=== PATIENT | female | born 1940 | race African-American/Black ===

== ENCOUNTER 2020-11-18 10:48 | Inpatient (IN) | payer MEDICARE, MEDICAID ==
[~2020-11-18] VITALS: Ht 170.2 cm; Wt 73.6 kg
[2020-11-18 12:19] LABS: BASOPHILS % 0.6 % (0.0-2.0); EOSINOPHILS % 0.1 % (0.0-5.0); HEMATOCRIT. 34.4 % (36.0-48.0); HEMOGLOBIN. 11.5 g/dL (12.0-16.0); LYMPHOCYTES % 17.4 % (20.0-50.0); MEAN CORPUSCULAR HEMOGLOBIN 28.5 pg (28.0-32.0); MEAN CORPUSCULAR VOLUME 85.3 fL (81.0-99.0); MEAN PLATELET VOLUME 7.9 fl (7.4-10.4); MONOCYTES % 4.6 % (2.0-8.0); NEUTROPHILS % 77.3 % (40.0-76.0); PLATELET 225 x1000/uL (130-400); RED BLOOD CELL COUNT 4.03 mill/uL (4.2-5.4); RED CELL DISTRIBUTION WIDTH 14.9 % (11.6-14.6)
[2020-11-18 12:23] LABS: CHLORIDE 111 mEq/L (98-107)
[2020-11-18 12:26] LABS: INR 1.1; PROTHROMBIN TIME 11.3 sec (9.6-11.0)
[2020-11-18] MEDS ORDERED: IPRATROPIUM/ALBUTEROL 0.5-3(2.5)MG/3ML NEB HHN PRN (13:15)
[2020-11-18] MEDS ORDERED: ACETAMINOPHEN 325MG TABLET PO PRN (13:15)
[2020-11-18] MEDS ORDERED: ONDANSETRON HCL 4MG/2ML INJ IV PRN (13:15)
[2020-11-18] MEDS ORDERED: DIPHENHYDRAMINE 50MG/ML VIAL IV PRN (13:15)
[2020-11-18] MEDS: SODIUM CHLORIDE 0.9% 1,000 ML IV SCH (13:45)
[2020-11-18 21:15] LABS: TOTAL IRON BINDING CAPACITY 351 ug/dL (250-450)
[2020-11-18 21:30] LABS: FERRITIN 35 ng/mL (10-291)
[2020-11-18 21:33] LABS: FOLIC ACID (FOLATE) SERUM > 20.00 ng/mL (>5.38)
[2020-11-18 21:44] LABS: VITAMIN B12 SERUM 460 pg/mL (211-911)
[2020-11-18 23:15] VITALS: BP 130/81
[2020-11-18] MEDS ORDERED: IOHEXOL-300 100 ML BOTTLE ONE (23:22)
[2020-11-18] MEDS ORDERED: DEXTROSE 50% WATER 50ML SYRINGE IV PRN (23:30)
[2020-11-19] VITALS: BP 130/81
[2020-11-19] MEDS: PANTOPRAZOLE SODIUM 40 MG/VIAL IV SCH ×2 (02:22→21:00)
[2020-11-19] MEDS: SODIUM CHLORIDE 0.9% 1,000 ML IV SCH ×2 (02:26→17:35)
[2020-11-19 04:00] VITALS: BP 103/57
[2020-11-19] MEDS: BLOOD SUGAR DIAGNOSTIC STRIP TEST SCH ×4 (05:36→21:00)
[2020-11-19] MEDS: INSULIN LISPRO 100 UNITS/ML SUBCUT SCH ×4 (05:36→21:00)
[2020-11-19 06:40] LABS: BASOPHILS % 0.9 % (0.0-2.0); EOSINOPHILS % 2.3 % (0.0-5.0); HEMATOCRIT. 31.2 % (36.0-48.0); HEMOGLOBIN. 10.1 g/dL (12.0-16.0); LYMPHOCYTES % 30.8 % (20.0-50.0); MEAN CORPUSCULAR HEMOGLOBIN 28.2 pg (28.0-32.0); MEAN CORPUSCULAR VOLUME 86.9 fL (81.0-99.0); MEAN PLATELET VOLUME 8.1 fl (7.4-10.4); MONOCYTES % 8.1 % (2.0-8.0); NEUTROPHILS % 57.9 % (40.0-76.0); PLATELET 195 x1000/uL (130-400); RED BLOOD CELL COUNT 3.59 mill/uL (4.2-5.4)
[2020-11-19 07:00] LABS: CHLORIDE 111 mEq/L (98-107)
[2020-11-19 07:10] LABS: LDL CHOLESTEROL 121 mg/dL (5-100)
[2020-11-19 07:12] LABS: HDL CHOLESTEROL 35 mg/dL (40-59)
[2020-11-19 08:00] VITALS: BP 104/56
[2020-11-19 12:00] VITALS: BP 133/73
[2020-11-19] MEDS ORDERED: BISACODYL 5MG TABLET PO NR ×2 (19:00→23:00)
[2020-11-19] MEDS ORDERED: METOCLOPRAMIDE HCL 10MG/2ML VIAL IV NR ×2 (19:00→23:00)
[2020-11-19] MEDS ORDERED: SORBITOL 70% SOLN 30ML PO NR ×2 (19:30→23:30)
[2020-11-19 20:00] VITALS: BP 135/58
[2020-11-20] VITALS: BP 110/53
[2020-11-20 04:00] VITALS: BP 135/71
[2020-11-20] MEDS: SODIUM CHLORIDE 0.9% 1,000 ML IV SCH ×2 (05:15→18:03)
[2020-11-20 06:49] LABS: BASOPHILS % 0.7 % (0.0-2.0); HEMATOCRIT. 28.7 % (36.0-48.0); HEMOGLOBIN. 9.7 g/dL (12.0-16.0); LYMPHOCYTES % 32.3 % (20.0-50.0); MEAN CORPUSCULAR HEMOGLOBIN 29.3 pg (28.0-32.0); MEAN CORPUSCULAR VOLUME 87.1 fL (81.0-99.0); MEAN PLATELET VOLUME 7.9 fl (7.4-10.4); MONOCYTES % 8.1 % (2.0-8.0); NEUTROPHILS % 55.9 % (40.0-76.0); PLATELET 209 x1000/uL (130-400); RED CELL DISTRIBUTION WIDTH 14.9 % (11.6-14.6)
[2020-11-20 06:51] LABS: INR 1.1; PROTHROMBIN TIME 11.3 sec (9.6-11.0)
[2020-11-20] MEDS: BLOOD SUGAR DIAGNOSTIC STRIP TEST SCH ×4 (07:00→20:26)
[2020-11-20] MEDS: INSULIN LISPRO 100 UNITS/ML SUBCUT SCH ×4 (07:40→20:26)
[2020-11-20 08:09] LABS: CHLORIDE 113 mEq/L (98-107)
[2020-11-20 12:00] VITALS: BP 120/60
[2020-11-20 15:49] LABS: BASOPHILS % 0.5 % (0.0-2.0); HEMATOCRIT. 30.9 % (36.0-48.0); HEMOGLOBIN. 10.1 g/dL (12.0-16.0); LYMPHOCYTES % 25.9 % (20.0-50.0); MEAN CORPUSCULAR HEMOGLOBIN 29.1 pg (28.0-32.0); MEAN CORPUSCULAR VOLUME 88.9 fL (81.0-99.0); MEAN PLATELET VOLUME 7.8 fl (7.4-10.4); MONOCYTES % 7.3 % (2.0-8.0); NEUTROPHILS % 64.3 % (40.0-76.0); PLATELET 221 x1000/uL (130-400); RED BLOOD CELL COUNT 3.47 mill/uL (4.2-5.4); RED CELL DISTRIBUTION WIDTH 14.8 % (11.6-14.6)
[2020-11-20 16:00] VITALS: BP 140/68
[2020-11-20] MEDS ORDERED: MAGNESIUM CITRATE 300ML SOLUTION PO NR (18:00)
[2020-11-20 20:00] VITALS: BP 137/80
[2020-11-20] MEDS: PANTOPRAZOLE SODIUM 40 MG/VIAL IV SCH (20:16)
[2020-11-21] VITALS: BP 117/52
[2020-11-21 04:00] VITALS: BP 136/78
[2020-11-21 06:21] LABS: BASOPHILS % 0.6 % (0.0-2.0); EOSINOPHILS % 3.2 % (0.0-5.0); HEMATOCRIT. 28.5 % (36.0-48.0); HEMOGLOBIN. 9.6 g/dL (12.0-16.0); LYMPHOCYTES % 21.6 % (20.0-50.0); MEAN CORPUSCULAR HEMOGLOBIN 29.3 pg (28.0-32.0); MEAN CORPUSCULAR VOLUME 86.7 fL (81.0-99.0); MEAN PLATELET VOLUME 7.9 fl (7.4-10.4); MONOCYTES % 7.7 % (2.0-8.0); NEUTROPHILS % 66.9 % (40.0-76.0); PLATELET 205 x1000/uL (130-400); RED BLOOD CELL COUNT 3.28 mill/uL (4.2-5.4); RED CELL DISTRIBUTION WIDTH 14.4 % (11.6-14.6)
[2020-11-21 06:27] LABS: CHLORIDE 112 mEq/L (98-107)
[2020-11-21] MEDS: BLOOD SUGAR DIAGNOSTIC STRIP TEST SCH ×4 (07:39→20:38)
[2020-11-21] MEDS: INSULIN LISPRO 100 UNITS/ML SUBCUT SCH ×4 (07:40→20:38)
[2020-11-21 08:00] VITALS: BP 120/63
[2020-11-21] MEDS: SODIUM CHLORIDE 0.9% 1,000 ML IV SCH ×2 (08:36→20:39)
[2020-11-21] MEDS ORDERED: SIMETHICONE 40 MG/0.6 ML 30ML ONE (12:03)
[2020-11-21] MEDS ORDERED: MIDAZOLAM HCL 5 MG/5 ML VIAL IV PRN (12:15)
[2020-11-21] MEDS ORDERED: FENTANYL CITRATE/PF 50MCG/ML 2ML VIAL IV PRN (12:16)
[2020-11-21] MEDS ORDERED: FENTANYL CITRATE/PF 50MCG/ML 2ML VIAL ONE (12:17)
[2020-11-21] MEDS ORDERED: MIDAZOLAM HCL 5 MG/5 ML VIAL ONE (12:17)
[2020-11-21] MEDS ORDERED: MORPHINE SULFATE 2 MG/ML CPJ (NOT FOR IM USE) IV PRN (14:15)
[2020-11-21] MEDS ORDERED: POTASSIUM CHLORIDE 20MEQ TABLET SR PO SCH (15:30)
[2020-11-21 16:00] VITALS: BP 142/61
[2020-11-21] MEDS ORDERED: POTASSIUM CHLORIDE 20MEQ TABLET SR PO NR (16:19)
[2020-11-21 20:00] VITALS: BP 108/59
[2020-11-21] MEDS: PANTOPRAZOLE SODIUM 40 MG/VIAL IV SCH (23:18)
[2020-11-22] VITALS: BP 136/69
[2020-11-22 04:00] VITALS: BP 145/72
[2020-11-22 04:35] LABS: CHLORIDE 112 mEq/L (98-107)
[2020-11-22 04:38] LABS: BASOPHILS % 0.4 % (0.0-2.0); EOSINOPHILS % 3.7 % (0.0-5.0); HEMATOCRIT. 28.6 % (36.0-48.0); HEMOGLOBIN. 9.7 g/dL (12.0-16.0); LYMPHOCYTES % 27.9 % (20.0-50.0); MEAN CORPUSCULAR HEMOGLOBIN 29.5 pg (28.0-32.0); MEAN CORPUSCULAR VOLUME 86.9 fL (81.0-99.0); MEAN PLATELET VOLUME 7.4 fl (7.4-10.4); MONOCYTES % 8.6 % (2.0-8.0); NEUTROPHILS % 59.4 % (40.0-76.0); PLATELET 223 x1000/uL (130-400); RED BLOOD CELL COUNT 3.29 mill/uL (4.2-5.4)
[2020-11-22] MEDS: INSULIN LISPRO 100 UNITS/ML SUBCUT SCH ×4 (06:42→21:00)
[2020-11-22] MEDS: BLOOD SUGAR DIAGNOSTIC STRIP TEST SCH ×4 (06:42→21:46)
[2020-11-22 08:00] VITALS: BP 115/65
[2020-11-22] MEDS ORDERED: BARIUM SULFATE 176 GM SUSP.RECON ONE (14:56)
[2020-11-22] MEDS ORDERED: EZ-HD SUSPENSION(BARIUM SULFATE 340GM) PO ONE (15:21)
[2020-11-22 16:00] VITALS: BP 125/74
[2020-11-22] MEDS: SODIUM CHLORIDE 0.9% 1,000 ML IV SCH ×2 (18:10→23:55)
[2020-11-22] MEDS: PANTOPRAZOLE SODIUM 40 MG/VIAL IV SCH (20:55)
[2020-11-22 21:05] VITALS: BP 136/65
[2020-11-22 23:45] VITALS: BP 137/68
[2020-11-23 04:00] VITALS: BP 140/77
[2020-11-23] MEDS: SODIUM CHLORIDE 0.9% 1,000 ML IV SCH (05:38)
[2020-11-23] MEDS: INSULIN LISPRO 100 UNITS/ML SUBCUT SCH ×3 (06:49→17:29)
[2020-11-23] MEDS: BLOOD SUGAR DIAGNOSTIC STRIP TEST SCH ×3 (06:49→17:28)
[2020-11-23 08:00] VITALS: BP 117/71
[2020-11-23 09:52] LABS: BASOPHILS % 0.8 % (0.0-2.0); EOSINOPHILS % 3.8 % (0.0-5.0); HEMATOCRIT. 28.2 % (36.0-48.0); HEMOGLOBIN. 9.7 g/dL (12.0-16.0); LYMPHOCYTES % 20.9 % (20.0-50.0); MEAN CORPUSCULAR HEMOGLOBIN 29.6 pg (28.0-32.0); MEAN PLATELET VOLUME 7.4 fl (7.4-10.4); MONOCYTES % 10.1 % (2.0-8.0); NEUTROPHILS % 64.4 % (40.0-76.0); PLATELET 260 x1000/uL (130-400); RED BLOOD CELL COUNT 3.28 mill/uL (4.2-5.4); RED CELL DISTRIBUTION WIDTH 14.7 % (11.6-14.6)
[2020-11-23 10:08] LABS: CHLORIDE 111 mEq/L (98-107)
[2020-11-23 12:00] VITALS: BP 121/71
[2020-11-23 16:00] VITALS: BP 120/69
[2020-11-23] MEDS ORDERED: ATOR20TA65 MT (17:55)
[2020-11-23 18:14] VITALS: BP 120/69
== END 2020-11-23 18:45 | disposition home health service (06) | DRG 388 ==
LOC: ER 10:57 → 8WST 12:34 → ENRESERV 21:09
PROVIDERS: ADMIT Internal Medicine; ATTEND Internal Medicine
PROC: 0DJD8ZZ Inspection of Lower Intestinal Tract, Via Natural or Artificial Opening Endoscopic (ICD-10-PCS; principal; 2020-11-21)
DX: K56.699 Other intestinal obstruction unspecified as to partial versus complete obstruction (principal); K57.31 Diverticulosis of large intestine without perforation or abscess with bleeding; D50.0 Iron deficiency anemia secondary to blood loss (chronic); E78.5 Hyperlipidemia, unspecified; E66.9 Obesity, unspecified; Z20.822 Contact with and (suspected) exposure to COVID-19; I10 Essential (primary) hypertension; K76.0 Fatty (change of) liver, not elsewhere classified; I70.0 Atherosclerosis of aorta; K80.20 Calculus of gallbladder without cholecystitis without obstruction; E87.6 Hypokalemia; Z87.891 Personal history of nicotine dependence; Z68.25 Body mass index [BMI] 25.0-25.9, adult; Z82.49 Family history of ischemic heart disease and other diseases of the circulatory system
CPT/HCPCS: 36415; 71045; 74177; 74270; 76700; 80048; 80053; 80061; 82607; 82728; 82746; 82962; 83036; 83540; 83550; 84443; 85025; 85044; 86850; 86900; 87426; 93005; 93970; 93971; 99285; C1893; C9113; J2250; J2270; J2765; J3010; J7040; Q9967

== ENCOUNTER 2022-02-13 11:18 | Inpatient (IN) | payer MEDICARE, MEDICAID ==
[~2022-02-13] VITALS: Ht 160 cm; Wt 69.4 kg
[~2022-02-13 11:18] MED LIST: ATOR20TA65 MT
[2022-02-13] MEDS ORDERED: SODIUM CHLORIDE 0.9% 1,000 ML IV ONE (11:30)
[2022-02-13 13:15] LABS: BASOPHILS % 0.4 % (0.0-2.0); EOSINOPHILS % 0.1 % (0.0-5.0); HEMATOCRIT. 47.6 % (36.0-48.0); HEMOGLOBIN. 15.4 g/dL (12.0-16.0); MEAN CORPUSCULAR HEMOGLOBIN 28.9 pg (28.0-32.0); MEAN CORPUSCULAR VOLUME 89.1 fL (81.0-99.0); MONOCYTES % 9.9 % (2.0-8.0); NEUTROPHILS % 74.6 % (40.0-76.0); RED BLOOD CELL COUNT 5.34 mill/uL (4.2-5.4); RED CELL DISTRIBUTION WIDTH 14.6 % (11.6-14.6)
[2022-02-13] MEDS ORDERED: ACETAMINOPHEN 650MG SUPP PR STA (13:20)
[2022-02-13 13:26] LABS: CHLORIDE 100 mEq/L (98-107)
[2022-02-13] MEDS ORDERED: AZITHROMYCIN 500MG/250ML 250 ML IV ONE (13:30)
[2022-02-13] MEDS ORDERED: PIPERACILLIN/TAZ 3.375G PREMIX 50 ML IV ONE (13:30)
[2022-02-13] MEDS ORDERED: SODIUM CHLORIDE 0.9% 1000ML BAG (SEPSIS BOLUS) IV ONE (13:30)
[2022-02-13] MEDS ORDERED: MAGNESIUM/ALUMINUM HYDROXIDE/SIMETHICONE 30ML UDC PO PRN (13:45)
[2022-02-13] MEDS ORDERED: ACETAMINOPHEN 650MG SUPP PR NR (13:45)
[2022-02-13] MEDS ORDERED: GUAIFENESIN 200MG/10ML SUGAR FREE UDC PO PRN (13:45)
[2022-02-13] MEDS ORDERED: DOCUSATE SODIUM 100MG CAPSULE PO PRN (13:45)
[2022-02-13] MEDS ORDERED: CEFTRIAXONE 1 G PREMIX 50 ML IV SCH (13:45)
[2022-02-13] MEDS: SODIUM CHLORIDE 0.45% 1,000 ML IV SCH (14:00)
[2022-02-13 14:06] LABS: PLATELET 201 x1000/uL (130-400)
[2022-02-13] MEDS ORDERED: NALOXONE HCL 0.4MG/ML VIAL IV PRN (14:15)
[2022-02-13 14:49] LABS: INR 1.2; PROTHROMBIN TIME 12.4 sec (9.6-11.0)
[2022-02-13 18:20] VITALS: BP 145/81
[2022-02-13 18:45] VITALS: BP 145/81
[2022-02-13 20:00] VITALS: BP 141/88
[2022-02-13 21:47] LABS: CLARITY URINE CLOUDY (CLEAR); COLOR URINE YELLOW (YELLOW); KETONES URINE 1+ (NEGATIVE); LEUKOCYTE ESTERASE URINE TRACE (NEGATIVE); NITRITE URINE POSITIVE (NEGATIVE); OCCULT BLOOD URINE 3+ (NEGATIVE); PH URINE 5.5 (4.5-8.0); PROTEIN URINE 4+ (NEGATIVE); SPECIFIC GRAVITY URINE 1.024 (1.005-1.030)
[2022-02-14] VITALS: BP 147/67
[2022-02-14] MEDS: SODIUM CHLORIDE 0.45% 1,000 ML IV SCH ×2 (03:19→16:24)
[2022-02-14 04:50] VITALS: BP 133/89
[2022-02-14] MEDS: ACETAMINOPHEN 325MG TABLET PO PRN ×2 (05:52→13:08)
[2022-02-14 07:00] LABS: BASOPHILS % 0.3 % (0.0-2.0); HEMOGLOBIN. 13.2 g/dL (12.0-16.0); LYMPHOCYTES % 13.9 % (20.0-50.0); MEAN CORPUSCULAR HEMOGLOBIN 29.1 pg (28.0-32.0); MEAN CORPUSCULAR VOLUME 88.4 fL (81.0-99.0); MONOCYTES % 10.6 % (2.0-8.0); NEUTROPHILS % 75.2 % (40.0-76.0); PLATELET 178 x1000/uL (130-400); RED BLOOD CELL COUNT 4.52 mill/uL (4.2-5.4); RED CELL DISTRIBUTION WIDTH 14.3 % (11.6-14.6)
[2022-02-14 08:00] VITALS: BP 159/88
[2022-02-14] MEDS ORDERED: AZITHROMYCIN 500 MG in DEXT 5% WATER 250 ML IV SCH (09:00)
[2022-02-14] MEDS: AMLODIPINE 10MG TABLET PO SCH (09:04)
[2022-02-14] MEDS: AZITHROMYCIN 500 MG in DEXT 5% WATER 250 ML IV SCH (10:24)
[2022-02-14] MEDS ORDERED: IPRATROPIUM/ALBUTEROL 0.5-3(2.5)MG/3ML NEB HHN PRN (11:00)
[2022-02-14 11:19] LABS: CHLORIDE 107 mEq/L (98-107)
[2022-02-14 12:00] VITALS: BP 106/64
[2022-02-14] MEDS: CEFTRIAXONE 1,000 MG in DEXTROSE 5% WATER 50 ML IV SCH (13:33)
[2022-02-14 13:42] LABS: HDL CHOLESTEROL 13 mg/dL (40-59); LDL CHOLESTEROL 105 mg/dL (5-100)
[2022-02-14] MEDS: ENOXAPARIN 40MG/0.4ML SYR SUBCUT SCH ×2 (13:43→13:44)
[2022-02-14 15:53] VITALS: BP 113/77
[2022-02-14 20:00] VITALS: BP 130/70
[2022-02-14] MEDS: HYDROCODONE/ACETAMINOPHEN 5/325MG TABLET PO PRN (21:09)
[2022-02-15 00:15] VITALS: BP 133/66
[2022-02-15] MEDS: ACETAMINOPHEN 325MG TABLET PO PRN (04:21)
[2022-02-15 04:30] VITALS: BP 104/66
[2022-02-15] MEDS: SODIUM CHLORIDE 0.45% 1,000 ML IV SCH ×3 (05:46→14:30)
[2022-02-15 06:14] LABS: BASOPHILS % 0.2 % (0.0-2.0); EOSINOPHILS % 0.6 % (0.0-5.0); HEMATOCRIT. 37.8 % (36.0-48.0); HEMOGLOBIN. 12.4 g/dL (12.0-16.0); LYMPHOCYTES % 19.4 % (20.0-50.0); MEAN CORPUSCULAR HEMOGLOBIN 28.9 pg (28.0-32.0); MEAN PLATELET VOLUME 8.8 fl (7.4-10.4); MONOCYTES % 14.9 % (2.0-8.0); NEUTROPHILS % 64.9 % (40.0-76.0); PLATELET 182 x1000/uL (130-400); RED CELL DISTRIBUTION WIDTH 14.8 % (11.6-14.6)
[2022-02-15 08:00] VITALS: BP 116/89
[2022-02-15] MEDS: ONDANSETRON HCL 4MG/2ML INJ IV PRN (11:00)
[2022-02-15] MEDS: TRAMADOL 50MG TABLET PO PRN (11:01)
[2022-02-15] MEDS: AZITHROMYCIN 500 MG in DEXT 5% WATER 250 ML IV SCH (11:01)
[2022-02-15] MEDS: CEFTRIAXONE 1,000 MG in DEXTROSE 5% WATER 50 ML IV SCH (11:02)
[2022-02-15] MEDS: AMLODIPINE 10MG TABLET PO SCH (11:05)
[2022-02-15 12:00] VITALS: BP 118/72
[2022-02-15] MEDS: ENOXAPARIN 40MG/0.4ML SYR SUBCUT SCH (14:03)
[2022-02-15 16:00] VITALS: BP 102/72
[2022-02-15] MEDS: HYDROCODONE/ACETAMINOPHEN 5/325MG TABLET PO PRN (18:55)
[2022-02-15 20:30] VITALS: BP 100/67
[2022-02-16] VITALS (7 sets, daily range): BP systolic 100–145; BP diastolic 55–79
[2022-02-16] MEDS: HYDROCODONE/ACETAMINOPHEN 5/325MG TABLET PO PRN ×2 (00:51→09:13)
[2022-02-16] MEDS: AZITHROMYCIN 500 MG in DEXT 5% WATER 250 ML IV SCH (09:09)
[2022-02-16] MEDS: CEFTRIAXONE 1,000 MG in DEXTROSE 5% WATER 50 ML IV SCH (09:10)
[2022-02-16] MEDS: AMLODIPINE 10MG TABLET PO SCH (09:14)
[2022-02-16] MEDS: ONDANSETRON HCL 4MG/2ML INJ IV PRN (09:19)
[2022-02-16] MEDS ORDERED: DIGOXIN 500MCG/2ML AMP IV NR (11:30)
[2022-02-16] MEDS: ENOXAPARIN 40MG/0.4ML SYR SUBCUT SCH (14:32)
[2022-02-16] MEDS: TRAMADOL 50MG TABLET PO PRN (20:48)
[2022-02-16 21:43] LABS: BG BASE EXCESS -5.4 mmol/L (-2.0-2.0); BG CARBOXYHEMOGLOBIN 0.6 % (0.5-1.5); BG DEOXYHEMOGLOBIN 8.1 % (0.0-5.0); BG FRACTION INSPIRED OXYGEN 100; BG HCO3 ACT 25.8 mmol/L (22.0-26.0); BG METHEMOGLOBIN 0.1 % (0.0-1.5); BG OXYGEN SATURATION 91.8 % (92.0-98.5); BG OXYHEMOGLOBIN 91.2 % (94.0-97.0); BG PCO2 81.2 mmHg (35.0-45.0); BG PO2 78.5 mmHg (75.0-100.0); BG SAMPLE SITE LEFT RADIAL; BG VENT MODE MASK - NRB
[2022-02-16] MEDS: SODIUM CHLORIDE 0.45% 1,000 ML IV SCH (22:00)
[2022-02-16 23:25] LABS: BG BASE EXCESS -2.9 mmol/L (-2.0-2.0); BG CARBOXYHEMOGLOBIN 0.5 % (0.5-1.5); BG FRACTION INSPIRED OXYGEN 60; BG HCO3 ACT 25.4 mmol/L (22.0-26.0); BG METHEMOGLOBIN 0.3 % (0.0-1.5); BG OXYHEMOGLOBIN 94.2 % (94.0-97.0); BG PCO2 59.2 mmHg (35.0-45.0); BG PO2 84.3 mmHg (75.0-100.0); BG SAMPLE SITE RIGHT RADIAL; BG TOTAL HEMOGLOBIN 13.9 g/dL (12.0-18.0); BG VENT MODE MASK - NRB
[2022-02-17] VITALS (8 sets, daily range): BP systolic 115–149; BP diastolic 40–85
[2022-02-17 07:44] LABS: BG BASE EXCESS -0.2 mmol/L (-2.0-2.0); BG CARBOXYHEMOGLOBIN 0.2 % (0.5-1.5); BG DEOXYHEMOGLOBIN 1.6 % (0.0-5.0); BG HCO3 ACT 25.5 mmol/L (22.0-26.0); BG METHEMOGLOBIN 0.2 % (0.0-1.5); BG OXYGEN SATURATION 98.4 % (92.0-98.5); BG PH 7.362 (7.350-7.450); BG PO2 123.3 mmHg (75.0-100.0); BG SAMPLE SITE RIGHT RADIAL; BG TOTAL HEMOGLOBIN 13.2 g/dL (12.0-18.0); BG VENT MODE MASK - BIPAP
[2022-02-17] MEDS: AMLODIPINE 10MG TABLET PO SCH (09:20)
[2022-02-17] MEDS: AMIODARONE HCL 200 MG TABLET PO SCH (11:09)
[2022-02-17] MEDS: CEFTRIAXONE 1,000 MG in DEXTROSE 5% WATER 50 ML IV SCH (11:09)
[2022-02-17] MEDS: AZITHROMYCIN 500 MG in DEXT 5% WATER 250 ML IV SCH (11:10)
[2022-02-17] MEDS: SODIUM CHLORIDE 0.45% 1,000 ML IV SCH (11:27)
[2022-02-17] MEDS: ENOXAPARIN 40MG/0.4ML SYR SUBCUT SCH (14:22)
[2022-02-18] VITALS (14 sets, daily range): BP systolic 109–143; BP diastolic 36–78
[2022-02-18] MEDS: TRAMADOL 50MG TABLET PO PRN (04:20)
[2022-02-18] MEDS: SODIUM CHLORIDE 0.45% 1,000 ML IV SCH (05:50)
[2022-02-18] MEDS: AMLODIPINE 10MG TABLET PO SCH (09:47)
[2022-02-18] MEDS: AMIODARONE HCL 200 MG TABLET PO SCH (09:47)
[2022-02-18] MEDS: CEFTRIAXONE 1,000 MG in DEXTROSE 5% WATER 50 ML IV SCH (11:39)
[2022-02-18] MEDS: ENOXAPARIN 40MG/0.4ML SYR SUBCUT SCH (14:04)
[2022-02-19] VITALS (8 sets, daily range): BP systolic 117–154; BP diastolic 54–98
[2022-02-19] MEDS: SODIUM CHLORIDE 0.45% 1,000 ML IV SCH ×2 (02:57→15:31)
[2022-02-19 06:08] LABS: BASOPHILS % 0.6 % (0.0-2.0); HEMATOCRIT. 38.6 % (36.0-48.0); HEMOGLOBIN. 13.1 g/dL (12.0-16.0); LYMPHOCYTES % 15.8 % (20.0-50.0); MEAN CORPUSCULAR HEMOGLOBIN 29.3 pg (28.0-32.0); MEAN CORPUSCULAR VOLUME 86.3 fL (81.0-99.0); MEAN PLATELET VOLUME 8.6 fl (7.4-10.4); MONOCYTES % 9.6 % (2.0-8.0); PLATELET 306 x1000/uL (130-400); RED BLOOD CELL COUNT 4.48 mill/uL (4.2-5.4); RED CELL DISTRIBUTION WIDTH 14.5 % (11.6-14.6)
[2022-02-19] MEDS: AMIODARONE HCL 200 MG TABLET PO SCH (08:21)
[2022-02-19] MEDS: AMLODIPINE 10MG TABLET PO SCH (08:22)
[2022-02-19] MEDS: CEFTRIAXONE 1,000 MG in DEXTROSE 5% WATER 50 ML IV SCH (10:47)
[2022-02-19] MEDS: ENOXAPARIN 40MG/0.4ML SYR SUBCUT SCH (14:17)
[2022-02-19] MEDS: ACETAMINOPHEN 325MG TABLET PO PRN (14:20)
[2022-02-19 18:10] LABS: BG BASE EXCESS 2.6 mmol/L (-2.0-2.0); BG CARBOXYHEMOGLOBIN 0.9 % (0.5-1.5); BG DEOXYHEMOGLOBIN 12.8 % (0.0-5.0); BG HCO3 ACT 24.8 mmol/L (22.0-26.0); BG METHEMOGLOBIN 0.2 % (0.0-1.5); BG OXYGEN SATURATION 87.1 % (92.0-98.5); BG OXYHEMOGLOBIN 86.1 % (94.0-97.0); BG PCO2 31.4 mmHg (35.0-45.0); BG PH 7.515 (7.350-7.450); BG PO2 48.8 mmHg (75.0-100.0); BG SAMPLE SITE RIGHT RADIAL; BG TOTAL HEMOGLOBIN 14.3 g/dL (12.0-18.0); BG VENT MODE ROOM AIR
[2022-02-19] MEDS ORDERED: LEVO750T68 MT (19:28)
[2022-02-20] VITALS (10 sets, daily range): BP systolic 106–135; BP diastolic 60–91
[2022-02-20] MEDS: SODIUM CHLORIDE 0.45% 1,000 ML IV SCH ×2 (04:55→19:20)
[2022-02-20] MEDS: AMIODARONE HCL 200 MG TABLET PO SCH (09:54)
[2022-02-20] MEDS: AMLODIPINE 10MG TABLET PO SCH (09:54)
[2022-02-20] MEDS: CEFTRIAXONE 1,000 MG in DEXTROSE 5% WATER 50 ML IV SCH (11:05)
[2022-02-20] MEDS: ENOXAPARIN 40MG/0.4ML SYR SUBCUT SCH (14:58)
== END 2022-02-20 22:19 | disposition home health service (06) | DRG 871 ==
LOC: ER 11:55 → 6WST 13:22 → 5EST 02-17 04:06
PROVIDERS: ADMIT Hospitalist; ATTEND Hospitalist
PROC: 5A09357 Assistance with Respiratory Ventilation, Less than 24 Consecutive Hours, Continuous Positive Airway Pressure (ICD-10-PCS; principal; 2022-02-16)
DX: A41.51 Sepsis due to Escherichia coli [E. coli] (principal); J18.9 Pneumonia, unspecified organism; J96.02 Acute respiratory failure with hypercapnia; J96.01 Acute respiratory failure with hypoxia; E44.1 Mild protein-calorie malnutrition; N39.0 Urinary tract infection, site not specified; E87.29 Other acidosis; I50.42 Chronic combined systolic (congestive) and diastolic (congestive) heart failure; I42.9 Cardiomyopathy, unspecified; G93.40 Encephalopathy, unspecified; I47.1 Supraventricular tachycardia; J44.0 Chronic obstructive pulmonary disease with (acute) lower respiratory infection; Z20.822 Contact with and (suspected) exposure to COVID-19; I11.0 Hypertensive heart disease with heart failure; E86.0 Dehydration; I48.91 Unspecified atrial fibrillation; F17.200 Nicotine dependence, unspecified, uncomplicated; Z68.30 Body mass index [BMI] 30.0-30.9, adult; Z68.27 Body mass index [BMI] 27.0-27.9, adult; Z82.49 Family history of ischemic heart disease and other diseases of the circulatory system
CPT/HCPCS: 36415; 36600; 71045; 80053; 80061; 81003; 82375; 82805; 82962; 83605; 84145; 84484; 85025; 87077; 87186; 87426; 93005; 93306; 93970; 94640; 94660; 97162; 97166; 99291; C1893; C9803; J0456; J0696; J1160; J1650; J2405; J2543; J7030; J7060